=== PATIENT | male | born 2000 | race African-American/Black ===

== ENCOUNTER 2021-01-08 21:29 | Emergency (ER) | payer SELFPAY ==
[~2021-01-08] VITALS: Ht 190.5 cm; Wt 136.4 kg
[2021-01-08 21:38] VITALS: TEMP 99
[2021-01-08 23:09] VITALS: BP 137/80; PULSE 79
== END 2021-01-08 23:09 | disposition home or self-care (01) ==
LOC: COL.ER 21:29
DX: S63.257A Unspecified dislocation of left little finger, initial encounter (principal); Y93.67 Activity, basketball; W21.05XA Struck by basketball, initial encounter